=== PATIENT | female | born 1995 | race African-American/Black ===

== ENCOUNTER 2018-01-14 14:35 | Emergency (ER) | payer SELFPAY ==
[2018-01-14] MEDS ORDERED: Ondansetron PF 4 MG/2 ML Vial ONE (15:03)
[2018-01-14 15:22] LABS: Bilirubin Negative (Negative); Blood, Urine Negative (Negative); Clarity Slightly Cloudy (Clear); Glucose, Urine (Dipstick) Negative (Negative); Leukocyte Negative (Negative); Nitrite Negative (Negative); Protein, Urine (Dipstick) 30 mg/dL (Neg-Trace); Urobilinogen 0.2 mg/dL (0.2-1.0); pH, Urine 8.5 (5.0-9.0)
[2018-01-14 15:25] LABS: BHCG - Serum Negative (NEGATIVE); Pregs Control Background? CLEAR/WHITE (CLR/WHITE); Pregs Control Bar Appear? YES (CONTROL BAR)
[2018-01-14 15:27] LABS: Bacteria/HPF 2+ HPF (None Seen)
== END 2018-01-14 18:04 | disposition home or self-care (01) ==
LOC: SCSER 14:35
DX: K52.9 Noninfective gastroenteritis and colitis, unspecified (principal); J45.909 Unspecified asthma, uncomplicated
CPT/HCPCS: 81003; 81015; 84703; 87086; 96361; 96374; J2405

== ENCOUNTER 2018-04-13 08:08 | Emergency (ER) | payer SELFPAY ==
[2018-04-13] MEDS ORDERED: Ondansetron ODT 4 MG TAB ONE (08:32)
== END 2018-04-13 08:53 | disposition home or self-care (01) ==
LOC: ERS 08:08
DX: R11.2 Nausea with vomiting, unspecified (principal); J45.909 Unspecified asthma, uncomplicated
CPT/HCPCS: 99283; Q0162